=== PATIENT | female | born 2000 | race Caucasian/White ===

== ENCOUNTER 2022-02-24 14:12 | Emergency (ER) | payer BC, OTHER ==
[2022-02-24 14:21] VITALS: BP 117/60; PULSE 82; RESP 18; TEMP 98; BMI 21.0
[2022-02-24 16:39] LABS: URINE APPEARANCE BLOODY; URINE COLOR RED
[2022-02-24 16:40] LABS: URINE GLUCOSE (UA) NEGATIVE (NEGATIVE)
[2022-02-24 16:41] LABS: URINE BILIRUBIN 2+ (NEGATIVE)
[2022-02-24 16:42] LABS: URINE PROTEIN 4+ (NEGATIVE)
[2022-02-24 16:49] LABS: EPI CELLS 112 /uL (0-25.1); HYALINE CASTS 31 /uL (0-3.1); URINE BACTERIA 0 /uL (0-1359); URINE RBC 536 /uL (0-23.9); URINE WBC 40 /uL (0-25.8)
[2022-02-24] MEDS ORDERED: NITROFURANTOIN MACROCRYSTAL 50 MG CAPSULE (FP) PO SCH (17:00)
== END 2022-02-24 17:37 | disposition home or self-care (01) ==
LOC: JERFT 14:12
DX: N30.01 Acute cystitis with hematuria (principal)
CPT/HCPCS: 81003; 87086; 99283-25